=== PATIENT | female | born 1990 | race Caucasian/White ===

== ENCOUNTER 2019-04-17 20:07 | Emergency (ER) | payer OTHER ==
--- OUTSIDE RECORDS SUMMARY | 2019-04-17 20:28 | XMS REPORT | Continuity of Care Document ---
:1990 Author Organization [facility] Address [address] [place] [address] Phone Care Team Providers Name Role Phone Malgorzata Limon NP Unavailable Unavailable Allergies, Adverse Reactions, Alerts Substance Reaction Status Sulfa (Sulfonamide Antibiotics) Hives/Skin Rash Active tetracycline Hives/Skin Rash Active Medications Medication Instructions Dosage Effective Dates Status Comments (start - stop) MIRENA (unknown Not Available - Active strength) Problems Condition Effective Dates (start - Clinical Status Comments stop) Encounter for routine checking of intrauterine contracep dev Encntr screen for infections w sexl mode of transmiss Encntr for cerv smear to cnfrm norm smr fol init abn smear Human immunodeficiency virus [HIV] - counseling Encounter for screening for human - immunodeficiency virus Noninflammatory disorder of cervix uteri, unspecified Low grade intrepith lesion cyto smr crvx (LGSIL) Human immunodeficiency virus [HIV] - counseling Encounter for oth general cnsl and - advice on contraception Body mass index (BMI) 19 or less, adult 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 Encounter for oth screening for malignant neoplasm of breast Encntr screen for infections w sexl mode of transmiss Encounter for routine checking of intrauterine contracep dev Encounter for screening for human - immunodeficiency virus Procedures Procedure Date No information Results Test Name Date and Time Measure Units Reference Range Abnormal Flag Status Comments No information Advance Directives Directive Yes / No Effective Date File Name No information Encounters Encounter Practice Location Reason(s) Diagnoses Date Provider Providers Description For Visit Copied on [facility]counter [facility]-2 Ashly Mcgarry. [facility] [place] [address], [place], [place], [address], [facility] [place], [address], [place], [place], [id number], [place] tel:[phone] [facility] Encounter for Apr-2 Ashly Mcgarry. [facility] [place] routine checking [address] Provider: [address] of intrauter[address], [place], [place], [address], [place], [address] [facility] [place], [address] [place] for infections w [address], , [place], sexl mode [place], [place], [place], [address]. [id number], for cerv smear [place] to cnfrm norm tel:[phone] smr fol init abn [phone] smearHuman immunodeficiency virus [HIV] counselingEncoun ter for screening for human immunodeficiency virus [facility] Noninflammatory [facility] [place] [address] Provider: [facility] cervix uteri, [address], [place] unspecified [place], [place], [facility], [facility] [place]note 2] [id number]. [address] tel:[phone], St, [place], [address] [place], [place], [address]. [id number], tel:[phone] tel:[phone] [facility] Low grade Apr-2 Raphaelidis [facility]erring [facility] [place] intrepith lesion [address]. [address] Provider: [facility] cyto smr crvx [address], [place] (LGSIL) [place], [place], [place]aitlin [facility] [place], [facility] [place][note 2] [address]. s, [address] tel:[phone], [address], [place], [address] [place], [place], [address]. [id number], tel:[phone] tel:[phone] [facility] Human Mar-0 Ashly Mcgarry. [facility] [place] immunodeficiency [address] Provider: [place] virus [HIV] [facility], [place], [address], [place], [address], [address] oth [place] general cnsl and , [facility], advice on [place], [place], [place], [address]. [id number], y mass index [place] (BMI) 19 or tel:[phone] less, [phone] adult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Encounte r for oth screening for malignant neoplasm of breastEncntr screen for infections w sexl mode of transmissEncount er for routine checking of intrauterine contracep devEncounter for screening for human immunodeficiency virus Family History Family Member Diagnosis Age At Onset 1st degree relative No hx of venous thromboembolism 1st degree relative No hx of cancer of breast, colon, endometrium or ovary 1st degree relative No hx of coronary heart disease (female <65, male <55) Immunizations Vaccine Date Status Comments No information Payers Payer name Insurance type Covered alliance party ID Authorization(s) [facility] [id number] Social History Type Description Quantity Date Captured Comments Alcohol Use Details Unknown Caffeine Use Details Unknown Tobacco Use Status Unknown Smoking Status Never smoker Sex Female Vital Signs Date / Height Weight BMI Pulse Blood Temperature Respiratory Body Head BMI Pulse Inhaled Time: Rate Pressure Rate Surface Circumference percentile [place] No information Chief Complaint And Reason For Visit No information Reason For Referral Reason For Referral No information Plan Of Treatment Date Type Action Status No information History Of Present Illness Encounter Date Complaint History Of Present Illness No information Functional Status Date Functional Assessment No information Medications Administered Medication Instructions Dosage Effective Dates (start - stop) Status Comments No information Instructions Date Instruction Additional Information No information Assessments Type Assessment Date No information Goals Health Concern Goal Type Priority Status Date No information Medical Equipment Description Device Clifford Device Identifier Effective Dates (start - stop ) Status No information Mental Status Date Cognitive Assessment No information Health Concerns Observation Date No information Concern Status Date No information
[2019-04-17 22:33] LABS: ABS Basophils 0.1 10^3/ul (0-0.2); ABS Eosinophils 0.1 10^3/ul (0-0.6); ABS Lymphocytes 2.2 10^3/ul (1.0-4.8); ABS Monocytes 0.8 10^3/ul (0-0.8); ABS Neutrophils 3.6 10^3/ul (1.5-7.7); Eosinophil % 1.6 %; Hematocrit 37 % (35-47); Hemoglobin 12.4 g/dL (12.0-16.0); Lymphocyte % 32.9 %; Mean Corpuscular HGB Conc 34 g/dL (31-36); Mean Corpuscular Hemoglobin 30 pg (27-31); Mean Corpuscular Volume 89 fL (80-97); Mean Platelet Volume 7.6 fL (7.4-10.4); Platelet Count 258 10^3/uL (150-450); Red Blood Count 4.13 10^6 /uL (3.70-4.87); Red Cell Distribution Width 13 % (10-15); White Blood Count 6.7 10^3/uL (3.5-10.8)
[2019-04-17 22:50] LABS: ALT 12 U/L (7-52); AST 15 U/L (13-39); Albumin 4.5 g/dL (3.2-5.2); Albumin/Globulin Ratio 1.7 (1-3); Alkaline Phosphatase 60 U/L (34-104); Anion Gap 5 mmol/L (2-11); BUN/Creatinine Ratio 15.8 (8-20); Blood Urea Nitrogen 12 mg/dL (6-24); C Reactive Protein 17.87 mg/L (<8.01); CO2 Carbon Dioxide 28 mmol/L (22-32); Calcium 9.3 mg/dL (8.6-10.3); Chloride 107 mmol/L (101-111); EGFR African American 111.3 (>60); Globulin 2.7 g/dL (2-4); Glucose 111 mg/dL (70-100); Potassium 3.7 mmol/L (3.5-5.0); Sodium 140 mmol/L (135-145); Total Protein 7.2 g/dL (6.4-8.9)
[2019-04-17 22:57] LABS: HCG Pregnancy < 0.60 mIU/mL
--- NOTE | 2019-04-17 23:07 | ED ---
Abdominal Pain/Female - HPI Summary HPI Summary: This pt is a 28 Y/O F presenting to [facility] with a CC of abdominal pain that is diffuse from the belly button down which has been present since 04/16/19 in the morning and is current rated a 5/10 in severity. She stated that the RLQ is the worse. She states that she has had associated chills and a headache intermittently. She states that she has become nauseas secondary to the pain. She denies any vomiting, CP, decreased appetites, and changes in bowel movements. She states that her pain has not improved or worsened. She has no aggravating or alleviating factors. She states that 5 months ago she received an US at her PCP and found a cyst that the pt states that she never took care of. She has a IUD placed 3 years ago. - History of Current Complaint Chief Complaint: EDAbdPain Stated Complaint: ABD PAIN PER PT Time Seen by Provider: 04/17/19 22:57 Hx Obtained From: Patient Onset/Duration: Sudden Onset, Lasting Days - 2, Still Present Timing: Constant Severity Initially: Moderate Severity Currently: Moderate Pain Intensity: 5 Pain Scale Used: 0-10 Numeric Location: Other - diffuse below the belly button, states worse at the RLQ Radiates: No Aggravating Factor(s): Nothing Alleviating Factor(s): Nothing Associated Signs and Symptoms: Positive: Negative - SOB, and changes in bowel movements, Nausea. Negative: Fever, Chest Pain, Urinary Symptoms, Decreased Appetite, Vomiting Allergies/Adverse Reactions: Allergies Allergy/AdvReac Type Severity Reaction Status Date / Time Sulfa (Sulfonamide Allergy Hives Verified 04/17/19 20:12 Antibiotics) Tetracyclines Allergy Hives Verified 04/17/19 20:12 PMH/Surg Hx/FS Hx/Imm Hx Previously Healthy: Yes Endocrine/Hematology History: Denies: Hx Diabetes Cardiovascular History: Denies: Hx Hypertension Respiratory History: Denies: Hx Asthma Sensory History: Reports: Hx Contacts or Glasses Opthamlomology History: Reports: Hx Contacts or Glasses - Surgical History Surgical History: Yes Surgery Procedure, Year, and Place: IUD placed 3 years ago, IUD: mirena. - Immunization History Immunizations Up to Date: Yes Infectious Disease History: No Infectious Disease History: Reports: Traveled Outside the [place] in Last 30 Days - [place] - Family History Known Family History: Positive: Cardiac Disease, Hypertension, Other - skin CA, Gout - Social History Occupation: Student - [employer] Lives: Dormitory/Roommates Alcohol Use: Occasionally Hx Substance Use: No Substance Use Type: Reports: None Hx Tobacco Use: No Smoking Status (MU): Never Smoked Tobacco Household Exposure: No Review of Systems Negative: Fever Negative: Chest Pain Positive: Abdominal Pain - Diffuse below the belly button, worse in the RLQ, Nausea. Negative: Vomiting Genitourinary: Negative All Other Systems Reviewed And Are Negative: Yes Physical Exam - Summary Physical Exam Summary: Appearance: Well-appearing, Well-nourished, lying in bed comfortably Skin: Warm, dry, no obvious rash Eyes: sclera anicteric, no conjunctival pallor ENT: mucous membranes moist, pharynx appears normal Neck: Supple, nontender Respiratory: Clear to auscultation, no signs of respiratory distress Cardiovascular: Normal S1, S2. No murmurs. Normal distal pulses in tibial and radial bilaterally. Abdomen: Soft, mild lower tenderness somewhat worse on the R. No peritoneal signs. normal active bowel sounds present Musculoskeletal: Normal, Strength/ROM Intact Neurological: A&Ox3, awake and alert, mentation is normal, speech is fluent and appropriate Psychiatric: affect is normal, does not appear anxious or depressed Triage Information Reviewed: Yes Vital Signs On Initial Exam: Initial Vitals Temp Pulse Resp BP Pulse Ox 98.3 F 81 16 129/79 100 04/17/19 20:09 04/17/19 20:09 04/17/19 20:09 04/17/19 20:09 04/17/19 20:09 Vital Signs Reviewed: Yes Procedures - Sedation Patient Received Moderate/Deep Sedation with Procedure: No Diagnostics - Vital Signs Vital Signs Temp Pulse Resp BP Pulse Ox 04/17/19 22:11 98.7 F 68 16 120/78 100 04/17/19 20:09 98.3 F 81 16 129/79 100 - Laboratory Lab Results: Lab Results 04/17/19 04/17/19 Range/Units 22:25 22:25 WBC 6.7 (3.5-10.8) 10^3/uL RBC 4.13 (3.70-4.87) 10^6 /uL Hgb 12.4 (12.0-16.0) g/dL Hct 37 (35-47) % MCV 89 (80-97) fL MCH 30 (27-31) pg MCHC 34 (31-36) g/dL RDW 13 (10-15) % Plt Count 258 (150-450) 10^3/uL MPV 7.6 (7.4-10.4) fL Neut % (Auto) 53.1 % Lymph % (Auto) 32.9 % [place] % (Auto) 11.6 % Eos % (Auto) 1.6 % Baso % (Auto) 0.8 % Absolute Neuts (auto) 3.6 (1.5-7.7) 10^3/ul Absolute Lymphs (auto) 2.2 (1.0-4.8) 10^3/ul Absolute Monos (auto) 0.8 (0-0.8) 10^3/ul Absolute Eos (auto) 0.1 (0-0.6) 10^3/ul Absolute Basos (auto) 0.1 (0-0.2) 10^3/ul Absolute Nucleated RBC 0.0 10^3/ul Nucleated RBC % 0.0 Sodium 140 (135-145) mmol/L Potassium 3.7 (3.5-5.0) mmol/L Chloride 107 (101-111) mmol/L Carbon Dioxide 28 (22-32) mmol/L Anion Gap 5 (2-11) mmol/L BUN 12 (6-24) mg/dL Creatinine 0.76 (0.51-0.95) mg/dL Est GFR ( Amer) 111.3 (>60) Est GFR (Non-Af Amer) 92.0 (>60) BUN/Creatinine Ratio 15.8 (8-20) Glucose 111 H (70-100) mg/dL Calcium 9.3 (8.6-10.3) mg/dL Total Bilirubin 0.50 (0.2-1.0) mg/dL AST 15 (13-39) U/L ALT 12 (7-52) U/L Alkaline Phosphatase 60 (34-104) U/L C-Reactive Protein 17.87 H (<8.01) mg/L Total Protein 7.2 (6.4-8.9) g/dL Albumin 4.5 (3.2-5.2) g/dL Globulin 2.7 (2-4) g/dL Albumin/Globulin Ratio 1.7 (1-3) Lipase 16 (11.0-82.0) U/L Beta HCG, Quant < 0.60 mIU/mL Result Diagrams: 04/17/19 22:25 04/17/19 22:25 Lab Statement: Any lab studies that have been ordered have been reviewed, and results considered in the medical decision making process. Abdominal Pain Fem Course/Dx - Course Course Of Treatment: This pt is a 28 Y/O F presenting to [facility] with a CC of abdominal pain that is diffuse from the belly button down which has been present since 04/16/19 in the morning and is current rated a 5/10 in severity. She stated that the RLQ is the worse. She states that she has had associated chills and a headache intermittently. She states that she has become nauseas secondary to the pain. She denies any vomiting, CP, decreased appetites, fevers , SOB, and changes in bowel movements. Her PE found that she has mild lower tenderness somewhat worse on the R. No peritoneal signs. She has abnormal labratory values in her C-Reactive proteins. Her Pelvic US showed no acute abnormalites. She will be discharged home with a Dx of acute pelvic pain. - Diagnoses Provider Diagnoses: Pelvic pain Discharge ED - Sign-Out/Discharge Documenting (check all that apply): Patient Departure - discharge - Discharge Plan Condition: Good Disposition: HOME Patient Education Materials: Pelvic Pain in Women (ED) Referrals: No Primary Care Phys,NOPCP [Primary Care Provider] - Additional Instructions: If your symptoms progress over the weekend, please come back. If that happens we may want to get more advanced imaging like a CT scan. I think more likely is you had a problem related to an ovarian cyst, and that should heal on its own. If the symptoms aren't progressing but aren't resolving, I would recommend checking in with your channel layer. - Billing Disposition and Condition Condition: GOOD Disposition: Home - Attestation Statements Document Initiated by Nicola: Yes Documenting Scribe: Lamberto Figueroa Provider For Whom Nicola is Documenting (Include Credential): Ricky Gabriel MD Scribe Attestation: Lamberto Downing, scribed for Ricky Gabriel MD on 04/18/19 at 0139. Scribe Documentation Reviewed: Yes Provider Attestation: The documentation as recorded by the Lamberto davisanto accurately reflects the service I personally performed and the decisions made by me, Ricky Gabriel MD Status of Nicola Document: Viewed
[2019-04-17 23:37] VITALS: BP 107/82
== END 2019-04-17 23:36 | disposition home or self-care (01) ==
LOC: ED 20:07
DX: R10.2 Pelvic and perineal pain (principal); R10.31 Right lower quadrant pain; R11.0 Nausea; R68.83 Chills (without fever); Z32.02 Encounter for pregnancy test, result negative; Z97.5 Presence of (intrauterine) contraceptive device; Z88.1 Allergy status to other antibiotic agents; Z88.2 Allergy status to sulfonamides
CPT/HCPCS: 36415; 76856; 80053; 83690; 84702; 85025; 86140; 99282